=== PATIENT | female | born 2000 | race Two or more races ===

== ENCOUNTER 2023-10-29 16:07 | Emergency (ER) | payer MEDICAID ==
[~2023-10-29] VITALS: Ht 160 cm; Wt 68.5 kg
[2023-10-29] MEDS: LIDOCAINE HCL 1% 20 ML VIAL IJ ONE (16:15)
[2023-10-29] MEDS ORDERED: LIDOCAINE HCL 1% 20 ML VIAL ONE (17:37)
[2023-10-29] MEDS ORDERED: BACITRACIN ZINC OINT 15 GM TUBE ONE (18:29)
[2023-10-29] MEDS ORDERED: BACITRACIN ZINC OINT 15 GM TUBE TOP ONE (18:30)
[2023-10-29 18:43] VITALS: BP 132/75; TEMP 98.2; O2SAT 98
== END 2023-10-29 18:44 | disposition home or self-care (01) ==
LOC: ER 16:08
DX: S61.210A Laceration without foreign body of right index finger without damage to nail, initial encounter (principal); R55 Syncope and collapse; Z60.2 Problems related to living alone; W22.8XXA Striking against or struck by other objects, initial encounter; Y93.89 Activity, other specified; Y92.89 Other specified places as the place of occurrence of the external cause; Y99.8 Other external cause status
CPT/HCPCS: 64450; 93005; 99284; J3490; A4606; A4663